=== PATIENT | male | born 1955 | race Caucasian/White ===

== ENCOUNTER → 2021-08-21 15:58 | Outpatient (CLI) | payer MEDICARE, SELFPAY | PROVIDERS: PCP Family Medicine; Referring Provider Specialist; Visit Provider Specialist | DX: R97.20 Elevated prostate specific antigen [PSA] (principal); N31.9 Neuromuscular dysfunction of bladder, unspecified; N21.0 Calculus in bladder; Z87.440 Personal history of urinary (tract) infections; Z80.42 Family history of malignant neoplasm of prostate | CPT/HCPCS: 87077; 87086; 87186; 99215 ==

== ENCOUNTER → 2021-09-19 09:12 | Day surgery (SDC) | payer MEDICARE, SELFPAY ==
[2021-09-05 11:50] VITALS: BMI 27.5
[2021-09-19] VITALS (9 sets, daily range): BP systolic 105–138; BP diastolic 68–80; PULSE 48–84; RESP 12–16; TEMP 36.2–36.6; O2SAT 94–99; BMI 27.5
[2021-09-19] MEDS: LACTATED RINGERS 1,000 ML 42 ML IV (10:10)
--- NOTE | 2021-09-19 10:21 | PM.PREOP ---
Pre-operative Note COVID-19 COVID-19 status: Negative Criteria for continued procedure: Expected advancement of disease process, Possibility delay results in more complex future surgery or treatment, Deterioration of the patient's condition or overall health, Delay expected to result in less-positive ultimate med/surg outcome and Non-surgical alternatives not available or appropriate per current SOC Interval Note History & Physical reviewed/Exam performed by Physician: Yes Changes to H&P: No
--- NOTE | 2021-09-19 11:06 | SUR.OPER ---
Lithotomy on padded OR bed, head on pillow, arms secured on padded arm boards at <90 degrees abduction. Legs secured in padded yellow fins stirrups.
[2021-09-19] MEDS: CEFAZOLIN 2 GM/20 ML SYRINGE IV (11:10)
--- NOTE | 2021-09-19 11:32 | SUR.OPER ---
Lithotomy on padded OR bed, head on pillow, arms secured on padded arm boards at <90 degrees abduction. Legs secured in padded yellow fins stirrups.
--- NOTE | 2021-09-19 11:58 | PM.OP.1 ---
Operative Date/Time/Diagnoses Date of procedure: 09/19/21 Time of procedure: 11:58 Pre-op diagnosis: 1. 1.8 cm bladder calculus. 2. Neurogenic bladder. Post-op diagnosis: same Procedure & Clinicians Procedure: 1. Cystoscopy/laser litholapaxy Same procedure as scheduled: Yes Indications: 1. 1.8 cm bladder calculus. 2. Neurogenic bladder. Click Yes if Unassisted: Yes Anesthesia Type: General Operative Notes Findings: 1. Urethra-normal caliber without annular stricture or lesion. 2. External sphincter-coapted with normal overlying urothelium. 3. Prostate-4+ cm length with elevated median bar and ptyc-if-swozyltr lateral lobe hyperplasia. 4. Bladder-trabeculated bladder. Bilateral ureteral orifices were patulous. There was a multifaceted and spiculated calculus residing dependently in the floor the bladder. Interestingly, it had a ring, donut like configuration. No nidus or foreign body was identified. Closure Type: not applicable Specimen(s): other (Fragments and sand from bladder calculus.) Applied: catheter (Two a 20 Maltese silicone catheter.) Estimated Blood Loss (mL): 2 Blood products transfused: none Procedure in detail: Patient was positioned in supine was administered general anesthesia. He was then positioned in semilithotomy and the lower abdomen, genitalia, and groin were then prepped and draped in sterile fashion. The continuous-flow laser cystoscope was then passed in lower urinary tract with the findings as described above. A 550 micron laser fiber was then requested and all operating room personnel and patient were fitted with laser safety eyewear. Lithotripsy was then commenced with eventual excellent fragmentation and also some volume of the stone was able to be dusted. The Ellik evacuator was then utilized to clear the bladder lumen of all fragments and nearly/virtually all dust. Only an occasional tiny particle a dust was adherent to mucosa after filling and emptying the bladder several times and also repeat use of the Ellik evacuator. The bladder was then left partially filled all instrumentation was removed. A 20 Maltese silicone catheter was then inserted lower urinary tract and placed to gravity drainage after filling the balloon with 10 cc of sterile water. The patient was then repositioned in supine, was awakened, and transferred to [facility] for transport to the PACU. Complications: none Post-operative Condition: stable Disposition: PACU Plan for aftercare: Discharge home.
--- NOTE | 2021-09-19 12:43 | SUR.OPER ---
Total laser time 11:43 sec.
--- NOTE | 2021-09-19 13:53 | SUR.PHASEII ---
Addendum entered by Lynne Tay R.N. 09/19/21 14:12: 1412-Patient dressed,transferred self into own electric wheelchair. Bauer to gravity. draining clear light pink no clots. Feels ready to go home. drives wheelchair with out issues. discharged to caregiver with all belongings. Pt [employer] has all instructions/picture. Original Note: 1330-ask to assist with discharge;caregiver at side. reviewed home instructions with both caregiverr and patient ,reviewed bauer leg bag and night bag care. demonstrated with caregiver. patient not receptive to leg bag. vss. meets criteria for discharge. 1350-IV out. dressed self with assist of caregiver assistance. then oob to wheelchair.
[2021-09-24 09:33] LABS: Ca oxalate dihydrate 50 % (.); Ca oxalate monohydr 50 % (.); Size 3x3 mm (.)
== END | disposition home or self-care (01) ==
PROVIDERS: Referring Provider Specialist; Visit Provider Specialist
PROC: (CPT 52317; principal; 2021-09-19 10:45)
DX: N21.0 Calculus in bladder (principal); N31.9 Neuromuscular dysfunction of bladder, unspecified
CPT/HCPCS: 52317; 82365; J0690; J1100; J2704; J3010

== ENCOUNTER → 2021-12-23 15:09 | Outpatient (CLI) | payer MEDICARE, SELFPAY | PROVIDERS: Visit Provider Specialist | DX: N31.9 Neuromuscular dysfunction of bladder, unspecified (principal); R30.0 Dysuria; Z87.440 Personal history of urinary (tract) infections; Z87.898 Personal history of other specified conditions; Z80.42 Family history of malignant neoplasm of prostate | CPT/HCPCS: 81002; 87077; 87086; 87186; 99214 ==

== ENCOUNTER → 2022-07-08 10:21 | Outpatient (CLI) | payer MEDICARE, SELFPAY ==
[2022-07-08 11:45] LABS: Appearance Urine UA CLEAR; Bilirubin Urine UA NEGATIVE (NEGATIVE); Color Urine UA YELLOW; Glucose Urine UA NEGATIVE (Negative); Ketones Urine UA NEGATIVE (NEGATIVE); Leukocyte Esterase Urine UA 2+ (NEGATIVE); Nitrite Urine UA NEGATIVE (Negative); Occult Blood Urine UA NEGATIVE (Negative); Protein Urine UA NEGATIVE (Negative); Urobilinogen Urine UA 0.2 E.U./dL (0.2); pH Urine UA 6.5 (4.5-8.0)
[2022-07-08 12:03] LABS: Bacteria Urine Few (2-10); Culture Indicated Urine Specimen Cultured; RBC Urine None Seen (0-5/HPF); Squamous Epithelial Cell Urine 1-5 /HPF (0-5/HPF); WBC Urine 5-10/HPF (0-5/HPF)
[2022-07-09 00:17] LABS: Prostate Specific Antigen 6.69 ng/mL (0.10-4.00)
== END ==
PROVIDERS: Referring Provider Specialist; Visit Provider Specialist
DX: N31.9 Neuromuscular dysfunction of bladder, unspecified (principal); R97.20 Elevated prostate specific antigen [PSA]; R30.0 Dysuria; Z80.42 Family history of malignant neoplasm of prostate; Z87.440 Personal history of urinary (tract) infections; Z87.448 Personal history of other diseases of urinary system
CPT/HCPCS: 36415; 51798; 81001; 84153; 87077; 87086; 99214

== ENCOUNTER → 2022-10-27 16:52 | Outpatient (CLI) | payer MEDICARE, SELFPAY ==
--- NOTE | 2022-10-27 16:57 | DI.MRI.S_ITS ---
PROCEDURE: MR PELVIS WO/W CON INDICATIONS: elevated PSA TECHNIQUE: Coronal HASTE, axial T1 FSE with fat saturation, 3-plane nonbreath-hold T2 FSE. After the administration of contrast, dynamic axial, delayed axial and coronal VIBE or 2-D FLASH with fat saturation through the pelvis. Optional diffusion weighted imaging and ADC may be performed. COMPARISON: [facility], RG, XR ABDOMEN 1V, 08/25/2021, 13:01. [facility], RG, XR ABDOMEN 1V, 12/17/2021, 14:40. FINDINGS: Image quality: Diffusion weighted and dynamic contrast enhanced images are diagnostic. Prostate: Gland size is 5.4 x 4.3 x 5.9 cm; ellipsoid gland volume is 71 mL. Mild linear and wedge-shaped ADC hypointensities present within the prostate peripheral zone with indistinct T2 correlates (PI-RADS 2 findings). Enlargement of the prostate transitional zone with findings typical of benign prostatic hyperplasia. No large lesion strongly stands out against background parenchymal changes of BPH on T2 weighted images (PI-RADS 2 findings). Genitourinary system: Bladder wall appears trabeculated. Distal ureters are non distended. Bowel and peritoneum: No pathologic free pelvic fluid. Inferior colon and small bowel loops are normal in caliber. Nodes and vessels: No pelvic or inguinal adenopathy by size criteria. Iliac vessels are normal in caliber. Bones: Large left iliopsoas heterotopic/dystrophic calcification redemonstrated as on prior plain films. IMPRESSION: No large or highly suspicious focal prostate lesion to direct biopsy. There is enlargement of the prostate transitional zone with findings typical of benign prostatic hyperplasia, with prostate volume estimated at 71 cc. Dictated by: Hermilo Sheffield M.D. on 10/28/2022 at 11:32 Approved by: Hermilo Sheffield M.D. on 10/28/2022 at 11:55
== END ==
PROVIDERS: PCP Specialist; Referring Provider Specialist; Visit Provider Specialist
DX: N40.0 Benign prostatic hyperplasia without lower urinary tract symptoms (principal); R97.20 Elevated prostate specific antigen [PSA]; Z80.42 Family history of malignant neoplasm of prostate
CPT/HCPCS: 72197; A9579

== ENCOUNTER → 2022-11-19 11:42 | Outpatient (CLI) | payer MEDICARE, SELFPAY | PROVIDERS: Visit Provider Specialist | DX: N21.0 Calculus in bladder (principal); N40.1 Benign prostatic hyperplasia with lower urinary tract symptoms; N13.8 Other obstructive and reflux uropathy; N31.9 Neuromuscular dysfunction of bladder, unspecified; R97.20 Elevated prostate specific antigen [PSA]; Z87.440 Personal history of urinary (tract) infections; Z87.448 Personal history of other diseases of urinary system; Z80.42 Family history of malignant neoplasm of prostate | CPT/HCPCS: 81002; 87077; 87086; 87186; 99215 ==

== ENCOUNTER → 2024-07-12 14:49 | Outpatient (CLI) | payer MEDICARE, SELFPAY | PROVIDERS: PCP Family Medicine; Visit Provider Urology | DX: N40.1 Benign prostatic hyperplasia with lower urinary tract symptoms (principal); N13.8 Other obstructive and reflux uropathy; N39.0 Urinary tract infection, site not specified; N31.9 Neuromuscular dysfunction of bladder, unspecified; R97.20 Elevated prostate specific antigen [PSA] | CPT/HCPCS: 81002; 87077; 87086; 87186; 99214 ==